=== PATIENT | male | born 1975 | race American Indian/Alaskan Native ===

== ENCOUNTER 2020-12-11 06:57 | Emergency (ER) | payer OTHER ==
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
== END 2020-12-11 08:45 | disposition home or self-care (01) ==
LOC: ED 06:57
CPT/HCPCS: 99281